=== PATIENT | male | born 1965 | race Caucasian/White ===

== ENCOUNTER 2018-09-10 18:30 | Emergency (ER) | payer OTHER, SELFPAY ==
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
[2018-09-10 18:37] VITALS: BP 131/75; PULSE 58; RESP 16; TEMP 36.6; O2SAT 100; BMI 24.4
[2018-09-10] MEDS: ERYTHROMYCIN OPHTH 1 GM OINT 1 APPLIC EYE-LEFT (19:15)
== END 2018-09-10 19:18 | disposition home or self-care (01) ==
PROVIDERS: Emergency Provider Emergency Medicine
DX: S05.02XA Injury of conjunctiva and corneal abrasion without foreign body, left eye, initial encounter (principal); W22.8XXA Striking against or struck by other objects, initial encounter
CPT/HCPCS: 99282; 99283